=== PATIENT | male | born 1980 | race African-American/Black ===

== ENCOUNTER 2019-04-11 13:00 | Inpatient (IN) ==
[2019-04-11] MEDS ORDERED: KETOROLAC 30 MG/ML VIAL IV STA (13:35)
[2019-04-11] MEDS ORDERED: ACETAMINOPHEN 500 MG TAB PO STA (13:35)
[2019-04-11] MEDS ORDERED: SODIUM CHLORIDE 0.9% 1000ML 1,000 ML IV ONE ×2 (13:36→16:14)
--- NOTE | 2019-04-11 13:59 | XRay Report ---
XR chest 1V portable HISTORY: 39 years-old Male Chest Pain acute atypical chest pain COMPARISON: None available TECHNIQUE: Portable AP view of the chest FINDINGS: Cardiac mediastinal and hilar silhouettes are within normal limits. The right lung is clear. No overt pulmonary edema or pneumothorax. Left midlung and left lung base consolidation is noted along with a left-sided pleural effusion which is likely small. Radiodensities project about the inferior left sh oulder region. IMPRESSION: Left midlung the left lung base consolidation suggests pneumonia. Associated parapneumoni c effusion.. Follow-up is needed to document resolution after treatment course. The above report was generated using voice recognition software. It may contain grammatical, syntax o r spelling errors. Electronically signed by: Cal Ferrara M.D. 04/11/2019 1:56 PM
[2019-04-11 14:03] LABS: INR 1.4 (0.9-1.1); Partial Thromboplastin Ratio 1.2; Partial Thromboplastin Time 33.4 Seconds (21.0-31.0); Prothrombin Time 13.6 Seconds (9.0-12.0)
[2019-04-11] MEDS ORDERED: LEVOFLOXACIN/D5W 750 MG/150 ML BAG IV STA (14:03)
[2019-04-11 14:06] LABS: D Dimer 1280 ug/L FEU (0-500)
[2019-04-11] MEDS ORDERED: ALBUT/IPRATROP 3MG/0.5MG NEB 3 ML VIAL NEB STA (14:06)
[2019-04-11 14:09] LABS: Hematocrit (blood only) 46.1 % (42-52); Hemoglobin 16.4 g/dL (14.0-18.0); Mean Corpuscular Hgb Conc 35.6 g/dL (32-36); Mean Corpuscular Volume 91.7 fL (80-100); Mean Platelet Volume 10.8 fL (7.4-10.4); Platelet Count 157 K/uL (130-400); RDW Coefficient of Variation 14.1 % (11.5-14.5); RDW Standard Deviation 47.4 fL (36.4-46.3); Red Blood Count 5.03 M/uL (4.7-6.1); White Blood Count 20.29 K/uL (4.8-10.8)
[2019-04-11 14:14] LABS: Alanine Aminotransferase 21 U/L (12-78); Albumin Level 3.1 gm/dl (3.4-5.0); Aspartate Aminotransferase 11 U/L (15-37); BUN Creatinine Ratio 14.1 (10-20); Blood Urea Nitrogen 20 mg/dl (7-18); Calcium 8.7 mg/dl (8.5-10.1); Carbon Dioxide 29 mmol/L (21-32); Chloride 98 mmol/L (98-107); Est GFR (Non-African American) 62.9; Glucose 112 mg/dl (70-99); Potassium 4.5 mmol/L (3.5-5.1); Sodium 136 mmol/L (136-145)
[2019-04-11 14:19] LABS: Albumin Globulin Ratio 0.7 (0.9-2); Alkaline Phosphatase 66 U/L (45-117); Bilirubin,Total 2.3 mg/dl (0.2-1); Globulin 4.5 gm/dl (2.5-4.0); Total Protein 7.6 gm/dl (6.4-8.2); Troponin I < 0.015 ng/ml (0-0.045)
[2019-04-11] MEDS ORDERED: OPTIRAY 320 125ml IV PRN (14:32)
--- NOTE | 2019-04-11 14:35 | CT Scan Report ---
CT head/brain wo con CLINICAL HISTORY: 39 years-old Male with headache. Acute headache TECHNIQUE: Multiple axial CT images of the head were obtained without contrast. A dose lowering tech nique was utilized adhering to the principles of ALARA. COMPARISON: Chest radiograph of same day. FINDINGS: No acute intracranial hemorrhage, midline shift, intracranial mass, hydrocephalus, territorial ischem ia or abnormal extra-axial collection. The calvarium is intact. Mild mucosal thickening about the ethmoid sinuses. Mastoid air cells are cl ear. Soft tissues and orbits are unremarkable. Left midlung and left lung base opacities noted on the best worker localizer images. IMPRESSION: No acute intracranial abnormality. The above report was generated using voice recognition software. It may contain grammatical, syntax o r spelling errors. Electronically signed by: Cal Ferrara M.D. 04/11/2019 2:33 PM
[2019-04-11 14:37] LABS: Basophils # (auto) 0.03 K/uL (0-0.2); Basophils % (auto) 0.1 %; Immature Granulocytes # (auto) 0.76 K/uL (0.00-0.02); Immature Granulocytes % (auto) 3.7 %; Lymphocytes # (auto) 0.64 K/uL (1.2-3.4); Lymphocytes % (auto) 3.2 %; Monocytes # (auto) 0.25 K/uL (0.11-0.59); Monocytes % (auto) 1.2 %; Neutrophils # (auto) 18.61 K/uL (1.4-6.5); Neutrophils % (auto) 91.8 %; Toxic Vacuolation 2+
[2019-04-11] MEDS ORDERED: MoRPHine SULFATE 4 MG/ML 1 ML CARP\\VIAL IV STA (14:46)
--- NOTE | 2019-04-11 14:47 | CT Scan Report ---
CHEST CTA for PULMONARY ARTERIES CT DOSE: 1225.90 mGy.cm HISTORY: PE, prisoner, +dimer, denies cough/infectious symp TECHNIQUE: Multiaxial CT images of the chest were performed following the intravenous administration of contrast to evaluate the pulmonary arteries. Maximal intensity projection images were also obtaine d. A dose lowering technique was utilized adhering to the principles of ALARA. COMPARISON STUDY: Chest 04/11/2019. FINDINGS: Normal caliber thoracic aorta with no evidence for dissection. No pleural or pericardial ef fusions. No mediastinal or right hilar lymphadenopathy. There are a few mildly enlarged left hilar ly mph nodes. The heart is normal in size. The main pulmonary arteries are patent. The remaining pulmona ry arteries are essentially nondiagnostic due to the poor opacification and respiratory motion artifa ct. Questionable filling defects seen within the left lower lobe pulmonary arteries best seen on imag e 153 and within the right middle and lower lobe pulmonary arteries appear to be due to the poor opac ification. Pulmonary emboli are considered less likely but not entirely excluded. The visualized live r, spleen, and adrenal glands are unremarkable. Normal esophagus. No suspicious lytic or blastic osse ous lesions. No pneumothorax. A few small subtle groundglass density seen within the right lower lobe . There is dense consolidation involving the majority of the left lower lobe. A few air bronchograms are identified. However, the majority of the left lower lobe bronchi demonstrate mucoid opacification . IMPRESSION: 1. No evidence for pulmonary venous within the main pulmonary arteries. The remaining pulmonary arter ies are essentially nondiagnostic due to the poor opacification respiratory motion artifact. Question al filling defects as described are likely due to the poor opacification. Pulmonary emboli are consid ered less likely but not entirely excluded. Lower extremity venous Doppler is recommended to evaluate for possible DVT. 2. There is dense consolidation involving the majority of the left lower lobe. A few air bronchograms are identified. However, the majority of the left lower lobe bronchi demonstrate mucoid opacificatio n. This favors a pneumonia. An underlying mass is considered less likely but not entirely excluded. B ronchoscopy is recommended for further evaluation. 3. A few mildly enlarged left hilar lymph nodes. Electronically signed by: Cruzito Tavares M.D. 04/11/2019 2:46 PM
[2019-04-11] MEDS ORDERED: POLYETHYLENE (MIRALAX) 17 GM PACK PO PRN (15:39)
--- NOTE | 2019-04-11 15:47 | History & Physical Report ---
Date of Service April 11, 2019 Assessment & Plan (1) Sepsis: (2) Pneumonia involving left lung: This is a 39-year-old male from [facility] with no known past medical history who presents with lightheadedness and pleuritic chest pain since yesterday and was found to have sepsis 2/2 pneumonia. -Tachycardic at 119, tachypneic in high 30s with leukocytosis of 20.2 9K -Lactic acid of 2.9 and procalcitonin of 32 -Blood cultures ordered after patient given first dose of Levaquin in ED -Broad spectrum coverage with Zosyn and Levaquin. MRSA nasal swab also pending -CXR with left midlung the left lung base consolidation suggestive of pneumonia with associated parapneumonic effusion -CTA chest without evidence for pulmonary venous within the main pulmonary arteries but the remaining pulmonary arteries are essentially nondiagnostic due to the poor opacification respiratory motion artifact -Ordered bilateral lower extremity doppler to evaluate for DVT -Xopenex nebs Q6HR, IV fluid resuscitations, supplemental O2 PRN (3) Parapneumonic effusion: CXR with pneumonia with associated parapneumonic effusion -Will need follow up CXR in one month to evaluate whether or not associated parapneumonic effusion has resolved. If not, may require bronchoscopy at that time (4) History of tobacco use: Quit smoking 2 months ago DVT Ppx: Calin veliz, early ambulation Code status: FULL PCP: KACI De Jesus Dispo:Admitted to [facility]. Discharge planning ordered. Patient seen in collaboration with Dr. Rivera. Please see addendum. History of Present Illness Chief Complaint: lightheadedness, pleuritic chest pain Primary Care Provider: KACI De Jesus This is a 39-year-old male from [facility] with no known past medical history who presents with lightheadedness and pleuritic chest pain since yesterday. Patient states that he got dull frontal headache yesterday and noticed decreased appetite. Today, patient felt lightheaded and was evaluated in [facility] before being sent to ED for further evaluation. Endorses subjective fever and chills since yesterday as well as dry cough and pleuritic chest pain. Denies any wheezing, productive sputum or hemoptysis. Does not take any home medications. Denies sick contacts. Stop smoking 2 months ago. In ED, patient found to be tachycardic at 119, tachypneic in high 30s. Has a leukocytosis of 20.2 9K, lactate of 2.[address] of [address]. CT head without acute intracranial abnormality. CXR with left midlung the left lung base consolidation suggestive of pneumonia with associated parapneumonic effusion. Follow-up is needed to document resolution after treatment course. Chest CTA without evidence for pulmonary venous within the main pulmonary arteries. The remaining pulmonary arteries are essentially nondiagnostic due to the poor opacification respiratory motion artifact. Questionable filling defects as described are likely due to the poor opacification. Pulmonary emboli are considered less likely but not entirely excluded. An underlying mass is considered less likely but not entirely excluded. Bronchoscopy is recommended for further evaluation. Started on dose of Levaquin in ED but due to patient meeting sepsis criteria, will expand to Zosyn and Levaquin. Blood cultures pending. Allergies Allergy/AdvReac Type Severity Reaction Status Date / Time No Known Allergies Allergy Unverified 04/11/19 14:02 Home Medications Home Medications Medication Instructions Recorded Confirmed Type No Known Home Medications 04/11/19 04/11/19 History Past Med/Surg History Medical History History of tobacco use (Chronic) Surgical History H/O shoulder surgery (Chronic) Family History Father Myocardial infarction Social History Feels Safe at Home: Yes Smoking Status: Former smoker Review of Systems Review of Systems: At least ten systems reviewed and negative except as noted in the HPI. Physical Exam Physical Exam: General Appearance: WD/WN, appears acutely ill, O2 saturation at 95% on 2L NC Head: normocephalic, atraumatic Eyes: normal inspection, PERRL, EOMI ENT: hearing grossly normal, pharynx normal (moist mucous membranes) Neck: supple, no JVD, no adenopathy Respiratory/Chest: Poor air movement bilaterally, crackles left lung base. No wheezes or rhonci. No respiratory distress or accessory muscle use Cardiovascular: tachycardic, no murmur, normal peripheral pulses, no BLE edema Abdomen/GI: normal bowel sounds, soft, non-tender to palpation Extremities/Musculoskelatal: normal inspection, no calf tenderness, normal capillary refill, no pedal edema Neurologic/Psych: alert, normal mood/affect, oriented x 3 Skin: normal color, warm/dry Results & Data Vital Signs (Past 12 Hours) Vital Signs Temp Pulse Pulse Resp BP Pulse Ox 04/11/19 15:10 133 H 27 H 131/82 95 04/11/19 15:00 126 H 36 H 96 04/11/19 14:50 122 H 28 H 04/11/19 14:42 117 H 20 93 04/11/19 14:40 119 H 37 H 94 04/11/19 14:32 120 H 31 H 94 04/11/19 14:10 117 H 37 H 92 04/11/19 14:00 120 H 41 H 92 04/11/19 13:59 92 04/11/19 13:50 120 H 41 H 04/11/19 13:49 119 H 40 H 04/11/19 13:35 92 04/11/19 13:08 37.3 C 119 H 18 144/86 H 92 Laboratory Results Short CBC 04/11/19 Range/Units 13:45 WBC 20.29 H (4.8-10.8) K/uL Hgb 16.4 (14.0-18.0) g/dL Hct 46.1 (42-52) % Plt Count 157 (130-400) K/uL BMP 04/11/19 13:45 Sodium 136 Potassium 4.5 Chloride 98 Carbon Dioxide 29 BUN 20 H Creatinine 1.39 Glucose 112 H Calcium 8.7 Cardiac Enzymes 04/11/19 Range/Units 13:45 Troponin I < 0.015 (0-0.045) ng/ml Liver Function 04/11/19 Range/Units 13:45 Total Bilirubin 2.3 H (0.2-1) mg/dl AST 11 L (15-37) U/L ALT 21 (12-78) U/L Alkaline Phosphatase 66 (45-117) U/L Albumin 3.1 L (3.4-5.0) gm/dl Diagnostic Findings CT head: IMPRESSION: No acute intracranial abnormality. CXR: IMPRESSION: Left midlung the left lung base consolidation suggests pne umonia. Associated parapneumonic effusion.. Follow-up is needed to document resolution after treatment course. Chest CTA: IMPRESSION: 1. No evidence for pulmonary venous within the main pulmonary arteries. The remaining pulmonary arteries are essentially nondiagnostic due to the poor opacification respiratory motion artifact. Questionable filling defects as described are likely due to the poor opacification. Pulmonary emboli are considered less likely but not entirely excluded. Lower extremity venous Doppler is recommended to evaluate for possible DVT. 2. There is dense consolidation involving the majority of the left lower lobe. A few air bronchograms are identified. However, the majority of the left lower lobe bronchi demonstrate mucoid opacification. This favors a pneumonia. An underlying mass is considered less likely but not entirely excluded. Bronchoscopy is recommended for further evaluation. 3. A few mildly enlarged left hilar lymph nodes. Supervising Physician Co-Signing Physician Notes I saw this patient with the physician librarian assistant, I participated in the history, physical, review of systems, and physical exam. I reviewed the medications with the patient and the physician librarian assistant and helped reconcile the medications. I helped take a detailed family and social history as well. I formulated the assessment and plan personally with the physician librarian assistant and went over it with the patient. ROS-No Headache, No Visual Changes, No Nausea, No Vomiting,+ Fever, + Chills, No Neck Pain or Stiffness, +Pleuritic Chest Pain, No Palpitations, + SOB, + LAWTON, + Cough, No Sputum, + Wheezing, No Abdominal Pain, No Diarrhea, No Hematemesis, No Hemoptysis, No Unexpected Weight Loss, No Flank pain, No Melena, No Hematochezia, No Frequency, No Urgency, No Burning, No Hematuria, No Rashes, No Diaphoresis. Appetite is Normal Physical Exam Gen-AAO x 3, NAD, febrile, Toxic appearing Head-NCAT, EOMI, PERRLA, Anicteric Sclera, No Posterior Pharyngeal Erythema Neck-Supple, No JVD, No Thyromegaly, No Masses, No LAD, No Bruits Lungs-Clear to Auscultation Bilaterally, L Basilar Rales, No Rhonchi, No Wheezing, No Crepitus Chest-No S4, +S1, +S2, No S3, No Murmurs, No Rubs, No Gallops, No Ectopy Abdomen-Soft, Bowel Sounds Present, Non Tender, Non Distended, No Hepatomegaly, No Splenomegaly, No Palpable Masses, No Rebound, No Rigidity, No Guarding Musculoskeletal-Full Range of Motion Bilaterally, No CVAT Extremities-No Cyanosis, No Clubbing, No Edema Nuero-Cranial Nerves II-XII grossly intact, Motor WNL, DTRs WNL, Strength WNL, Non Focal Psych-Normal Mood (1) Sepsis Sepsis type: sepsis due to unspecified organism Qualified Code(s): A41.9 - Sepsis, unspecified organism
--- NOTE | 2019-04-11 16:34 | Emergency Department Note ---
Entered by Willow Pearson acting as a scribe for Yonatan Hodge MD History of Present Illness General Chief complaint: Chest Pain Stated complaint: CHEST PAIN Time Seen by Provider: 04/11/19 13:11 Source: patient History of Present Illness Provider complaint: chest pain Onset (ago): day(s) 1 Location: chest and left Radiation: non-radiation Pain Consistency: + intermittent Maximum Pain Intensity: 9 Quality: + sharp Associated symptoms: + headaches, + loss of appetite and + other (-swelling in legs); no cough The patient is a 39 year old Black male w/ PMHx who presents to the ED w/ CC of chest pain beginning yesterday. The patient states that he has been experiencing intermittent episodes of sharp chest pain that started yesterday. He states that is last episode was this morning at 700 and it has been constant pain since. The patient states that the pain is left sided and is non-radiating. He states that he has a lack of appetite and a headache which he took Ibuprofen that did not alleviate his pain. He denies any swelling in his legs or cough. The patient states that he does not take any blood thinner. He reports that he quit smoking 2 months ago. He states that his father had a heart attack at the age of 67. Home Medications Home Medications Medication Instructions Recorded Confirmed Type No Known Home Medications 04/11/19 04/11/19 History Allergies Allergy/AdvReac Type Severity Reaction Status Date / Time No Known Allergies Allergy Unverified 04/11/19 14:02 Past Med/Surg History Medical History History of tobacco use (Chronic) Surgical History H/O shoulder surgery (Chronic) Family History Father Myocardial infarction Social History Feels Safe at Home: Yes Smoking Status: Former smoker Review of Systems See HPI for pertinent positives & negatives. and A total of 10 systems reviewed and were otherwise negative Physical Exam Vital Signs Vital Signs - 24 hr 04/11/19 13:08 04/11/19 13:35 04/11/19 13:49 Temperature 37.3 C Temperature Source Oral Sepsis Recent Fever Within 48 Hours No Sepsis New/Unexplained Change in Mental Status No Sepsis Action Taken by Nursing No Action Required Oxygen Flow Rate - Titration 2 Pulse Oximetry Post Tiitration 94 Pulse Rate 119 H 119 H Pulse Rate [Apical] Pulse Rate from SpO2 Sensor Respiratory Rate 18 40 H Blood Pressure 144/86 H Blood Pressure Mean 105 Pulse Oximetry 92 92 Oxygen Delivery Method Room Air Room Air Nasal Cannula Oxygen Flow Rate 0 04/11/19 13:50 04/11/19 13:59 04/11/19 14:00 Temperature Temperature Source Sepsis Recent Fever Within 48 Hours Sepsis New/Unexplained Change in Mental Status Sepsis Action Taken by Nursing Oxygen Flow Rate - Titration Pulse Oximetry Post Tiitration Pulse Rate 120 H 120 H Pulse Rate [Apical] Pulse Rate from SpO2 Sensor 120 H Respiratory Rate 41 H 41 H Blood Pressure Blood Pressure Mean Pulse Oximetry 92 92 Oxygen Delivery Method Room Air Oxygen Flow Rate 04/11/19 14:10 04/11/19 14:32 04/11/19 14:40 Temperature Temperature Source Sepsis Recent Fever Within 48 Hours Sepsis New/Unexplained Change in Mental Status Sepsis Action Taken by Nursing Oxygen Flow Rate - Titration Pulse Oximetry Post Tiitration Pulse Rate 117 H 120 H 119 H Pulse Rate [Apical] Pulse Rate from SpO2 Sensor 117 H 120 H 119 H Respiratory Rate 37 H 31 H 37 H Blood Pressure Blood Pressure Mean Pulse Oximetry 92 94 94 Oxygen Delivery Method Oxygen Flow Rate 04/11/19 14:42 04/11/19 14:50 04/11/19 15:00 Temperature Temperature Source Sepsis Recent Fever Within 48 Hours Sepsis New/Unexplained Change in Mental Status Sepsis Action Taken by Nursing Oxygen Flow Rate - Titration Pulse Oximetry Post Tiitration Pulse Rate 122 H 126 H Pulse Rate [Apical] 117 H Pulse Rate from SpO2 Sensor 127 H Respiratory Rate 20 28 H 36 H Blood Pressure Blood Pressure Mean Pulse Oximetry 93 96 Oxygen Delivery Method Nasal Cannula Oxygen Flow Rate 2 04/11/19 15:10 04/11/19 15:11 04/11/19 15:20 Temperature Temperature Source Sepsis Recent Fever Within 48 Hours Sepsis New/Unexplained Change in Mental Status Sepsis Action Taken by Nursing Oxygen Flow Rate - Titration Pulse Oximetry Post Tiitration Pulse Rate 133 H 130 H 126 H Pulse Rate [Apical] Pulse Rate from SpO2 Sensor 133 H 128 H 126 H Respiratory Rate 27 H 37 H 36 H Blood Pressure 131/82 131/82 Blood Pressure Mean 98 98 Pulse Oximetry 95 96 95 Oxygen Delivery Method Oxygen Flow Rate 04/11/19 15:30 04/11/19 15:40 04/11/19 15:50 Temperature Temperature Source Sepsis Recent Fever Within 48 Hours Sepsis New/Unexplained Change in Mental Status Sepsis Action Taken by Nursing Oxygen Flow Rate - Titration Pulse Oximetry Post Tiitration Pulse Rate 129 H 126 H 122 H Pulse Rate [Apical] Pulse Rate from SpO2 Sensor Respiratory Rate 29 H 31 H 32 H Blood Pressure Blood Pressure Mean Pulse Oximetry Oxygen Delivery Method Oxygen Flow Rate 04/11/19 16:00 04/11/19 16:01 04/11/19 16:10 Temperature Temperature Source Sepsis Recent Fever Within 48 Hours Sepsis New/Unexplained Change in Mental Status Sepsis Action Taken by Nursing Oxygen Flow Rate - Titration Pulse Oximetry Post Tiitration Pulse Rate 117 H 120 H 121 H Pulse Rate [Apical] Pulse Rate from SpO2 Sensor 118 H 120 H 122 H Respiratory Rate 27 H 29 H 24 Blood Pressure 125/81 Blood Pressure Mean 95 Pulse Oximetry 97 95 95 Oxygen Delivery Method Oxygen Flow Rate GENERAL: Well appearing, well nourished, NAD, non-toxic. EYE EXAM: Normal conjunctiva. PERRL, no anisocoria and EOM's grossly intact w/o pain. OROPHARYNX: Moist mucous membranes. Grossly normal dentition. NECK: Supple, no nuchal rigidity, no adenopathy, non-tender. No signs of meningismus. LUNGS: Crackles at left base. Normal chest wall mechanics. HEART: NSR, tachycardic, no MRG. No reproducible chest wall pain, crepitus, or bruising. ABDOMEN: Abdomen soft, non-tender, normo-active bowel sounds, no masses, no rebound or guarding. BACK: No CVA TTP. SKIN: No rashes and no bruising. UPPER EXTREMITIES: Upper extremities are grossly normal. Left upper extremity cuffed. LOWER EXTREMITIES: No pitting edema. No calf pain. Right lower extremity cuffed. NEURO EXAM: A&O x3, cranial nerves II-XII grossly intact, normal speech, 5/5 strength throughout, no sensory deficits, good finger to nose, no pronator drift, moves all 4 extremities on command w/o issue. Course 1327: The patient was evaluated in room C4, and a complete history and physical examination were performed. 1409: I reevaluated the patient and updated him on his results. 1456: I discussed the patient's case with Shilpa Love, Dr. Mamie Love Hospitalist will further evaluate the patient. Consultations Consultation #1: Shilpa Love Time: 14:56 Administered Medications Ioversol (Optiray 320 125ml) 85 ml IV ONCE PRN PRN Reason: Interaction Checking Stop: 04/15/19 14:31 Last Admin: 04/11/19 14:32 Dose: 85 ml Documented by: [id number] Discontinued Medications Acetaminophen (Tylenol) 1,000 mg PO NOW STA Stop: 04/11/19 13:36 Last Admin: 04/11/19 13:58 Dose: 1,000 mg Documented by: [id number] Albuterol (Duoneb) 6 ml NEB NOW STA Stop: 04/11/19 14:07 Last Admin: 04/11/19 14:39 Dose: 6 ml Documented by: [id number] Sodium Chloride (Nss 1000ml) 1,000 mls @ 999 mls/hr IV .Q1H1M ONE Stop: 04/11/19 14:36 Last Infusion: 04/11/19 14:51 Dose: 0 mls/hr Documented by: [id number] Admin: 04/11/19 13:49 Dose: 999 mls/hr Documented by: [id number] Levofloxacin/Dextrose (Levaquin/D5w) 750 mg in 150 mls @ 100 mls/hr IV NOW STA Stop: 04/11/19 15:32 Last Infusion: 04/11/19 16:19 Dose: 0 mls/hr Documented by: [id number] Admin: 04/11/19 14:31 Dose: 100 mls/hr Documented by: [id number] Ketorolac Tromethamine (Toradol) 30 mg IV NOW STA Stop: 04/11/19 13:36 Last Admin: 04/11/19 13:58 Dose: 30 mg Documented by: [id number] Morphine Sulfate (Morphine Sulfate) 4 mg IV NOW STA Stop: 04/11/19 14:47 Last Admin: 04/11/19 14:52 Dose: 4 mg Documented by: [id number] Medical Decision Making Medical Records Attestation: I reviewed the patient's medical records. Home Medications Current Medication List: was personally reviewed by me Laboratory Data Attestation: I reviewed the patient's lab results. Result diagrams: 04/11/19 13:45 04/11/19 13:45 Lab Results 04/11/19 04/11/19 04/11/19 Range/Units 13:45 13:45 13:45 WBC 20.29 H (4.8-10.8) K/uL RBC 5.03 (4.7-6.1) M/uL Hgb 16.4 (14.0-18.0) g/dL Hct 46.1 (42-52) % MCV 91.7 (80-100) fL MCH 32.6 (25-34) pg MCHC 35.6 (32-36) g/dL RDW Std Deviation 47.4 H (36.4-46.3) fL RDW Coeff of Alexander 14.1 (11.5-14.5) % Plt Count 157 (130-400) K/uL MPV 10.8 H (7.4-10.4) fL Immature Gran % (Auto) 3.7 % Neut % (Auto) 91.8 % Lymph % (Auto) 3.2 % Madison % (Auto) 1.2 % Eos % (Auto) 0.0 % Baso % (Auto) 0.1 % Immature Gran # (Auto) 0.76 H (0.00-0.02) K/uL Neut # (Auto) 18.61 H (1.4-6.5) K/uL Lymph # (Auto) 0.64 L (1.2-3.4) K/uL Madison # (Auto) 0.25 (0.11-0.59) K/uL Eos # (Auto) 0.00 (0-0.5) K/uL Baso # (Auto) 0.03 (0-0.2) K/uL Toxic Vacuolation 2+ PT 13.6 H (9.0-12.0) Seconds INR 1.4 H (0.9-1.1) APTT 33.4 H (21.0-31.0) Seconds PTT Ratio 1.2 D-Dimer 1280 H* (0-500) ug/L FEU Sodium 136 (136-145) mmol/L Potassium 4.5 (3.5-5.1) mmol/L Chloride 98 (98-107) mmol/L Carbon Dioxide 29 (21-32) mmol/L Anion Gap 9.0 (3-11) BUN 20 H (7-18) mg/dl Creatinine 1.39 (0.6-1.4) mg/dl Est Cr Clr Drug Dosing 76.0 ml/min Est GFR ( Amer) 73.0 Est GFR (Non-Af Amer) 62.9 BUN/Creatinine Ratio 14.1 (10-20) Glucose 112 H (70-99) mg/dl Lactate (0.4-2.0) mmol/L Calcium 8.7 (8.5-10.1) mg/dl Total Bilirubin 2.3 H (0.2-1) mg/dl AST 11 L (15-37) U/L ALT 21 (12-78) U/L Alkaline Phosphatase 66 (45-117) U/L Troponin I < 0.015 (0-0.045) ng/ml Total Protein 7.6 (6.4-8.2) gm/dl Albumin 3.1 L (3.4-5.0) gm/dl Globulin 4.5 H (2.5-4.0) gm/dl Albumin/Globulin Ratio 0.7 L (0.9-2) Lipase 24 L (73-393) U/L Procalcitonin (0-0.5) ng/ml 04/11/19 04/11/19 Range/Units 13:45 15:38 WBC (4.8-10.8) K/uL RBC (4.7-6.1) M/uL Hgb (14.0-18.0) g/dL Hct (42-52) % MCV (80-100) fL MCH (25-34) pg MCHC (32-36) g/dL RDW Std Deviation (36.4-46.3) fL RDW Coeff of Alexander (11.5-14.5) % Plt Count (130-400) K/uL MPV (7.4-10.4) fL Immature Gran % (Auto) % Neut % (Auto) % Lymph % (Auto) % Madison % (Auto) % Eos % (Auto) % Baso % (Auto) % Immature Gran # (Auto) (0.00-0.02) K/uL Neut # (Auto) (1.4-6.5) K/uL Lymph # (Auto) (1.2-3.4) K/uL Madison # (Auto) (0.11-0.59) K/uL Eos # (Auto) (0-0.5) K/uL Baso # (Auto) (0-0.2) K/uL Toxic Vacuolation PT (9.0-12.0) Seconds INR (0.9-1.1) APTT (21.0-31.0) Seconds PTT Ratio D-Dimer (0-500) ug/L FEU Sodium (136-145) mmol/L Potassium (3.5-5.1) mmol/L Chloride (98-107) mmol/L Carbon Dioxide (21-32) mmol/L Anion Gap (3-11) BUN (7-18) mg/dl Creatinine (0.6-1.4) mg/dl Est Cr Clr Drug Dosing ml/min Est GFR ( Amer) Est GFR (Non-Af Amer) BUN/Creatinine Ratio (10-20) Glucose (70-99) mg/dl Lactate 2.9 H* (0.4-2.0) mmol/L Calcium (8.5-10.1) mg/dl Total Bilirubin (0.2-1) mg/dl AST (15-37) U/L ALT (12-78) U/L Alkaline Phosphatase (45-117) U/L Troponin I (0-0.045) ng/ml Total Protein (6.4-8.2) gm/dl Albumin (3.4-5.0) gm/dl Globulin (2.5-4.0) gm/dl Albumin/Globulin Ratio (0.9-2) Lipase (73-393) U/L Procalcitonin 32.07 H (0-0.5) ng/ml Imaging Data Radiologist's Impression: Radiology results as stated below per my review and the radiologist's interpretation: XR chest 1V portable HISTORY: 39 years-old Male Chest Pain acute atypical chest pain COMPARISON: None available TECHNIQUE: Portable AP view of the chest FINDINGS: Cardiac mediastinal and hilar silhouettes are within normal limits. The right lung is clear. No overt pulmonary edema or pneumothorax. Left midlung and left lung base consolidation is noted along with a left-sided pleural effusion which is likely small. Radiodensities project about the inferior left shoulder region. IMPRESSION: Left midlung the left lung base consolidation suggests pneumonia. Associated parapneumonic effusion.. Follow-up is needed to document resolution after treatment course. The above report was generated using voice recognition software. It may contain grammatical, syntax or spelling errors. Electronically signed by: Cal Ferrara M.D. 04/11/2019 1:[address] head/brain wo con CLINICAL HISTORY: 39 years-old Male with headache. Acute headache TECHNIQUE: Multiple axial CT images of the head were obtained without contrast. A dose lowering technique was utilized adhering to the principles of ALARA. COMPARISON: Chest radiograph of same day. FINDINGS: No acute intracranial hemorrhage, midline shift, intracranial mass, hydrocephalus, territorial ischemia or abnormal extra-axial collection. The calvarium is intact. Mild mucosal thickening about the ethmoid sinuses. Mastoid air cells are clear. Soft tissues and orbits are unremarkable. Left midlung and left lung base opacities noted on the manager nuclear localizer images. IMPRESSION: No acute intracranial abnormality. The above report was generated using voice recognition software. It may contain grammatical, syntax or spelling errors. Electronically signed by: Cal Ferrara M.D. 04/11/2019 2:33 PM CHEST CTA for PULMONARY ARTERIES CT DOSE: 1225.90 mGy.cm HISTORY: PE, prisoner, +dimer, denies cough/infectious symp TECHNIQUE: Multiaxial CT images of the chest were performed following the intravenous administration of contrast to evaluate the pulmonary arteries. Maximal intensity projection images were also obtained. A dose lowering technique was utilized adhering to the principles of ALARA. COMPARISON STUDY: Chest 04/11/2019. FINDINGS: Normal caliber thoracic aorta with no evidence for dissection. No pleural or pericardial effusions. No mediastinal or right hilar lymphadenopathy. There are a few mildly enlarged left hilar lymph nodes. The heart is normal in size. The main pulmonary arteries are patent. The remaining pulmonary arteries are essentially nondiagnostic due to the poor opacification and respiratory motion artifact. Questionable filling defects seen within the left lower lobe pulmonary arteries best seen on image 153 and within the right middle and lower lobe pulmonary arteries appear to be due to the poor opacification. Pulmonary emboli are considered less likely but not entirely excluded. The visualized liver, spleen, and adrenal glands are unremarkable. Normal esophagus. No suspicious lytic or blastic osseous lesions. No pneumothorax. A few small subtle groundglass density seen within the right lower lobe. There is dense consolidation involving the majority of the left lower lobe. A few air bronchograms are identified. However, the majority of the left lower lobe bronchi demonstrate mucoid opacification. IMPRESSION: 1. No evidence for pulmonary venous within the main pulmonary arteries. The remaining pulmonary arteries are essentially nondiagnostic due to the poor opacification respiratory motion artifact. Questional filling defects as described are likely due to the poor opacification. Pulmonary emboli are considered less likely but not entirely excluded. Lower extremity venous Doppler is recommended to evaluate for possible DVT. 2. There is dense consolidation involving the majority of the left lower lobe. A few air bronchograms are identified. However, the majority of the left lower l obe bronchi demonstrate mucoid opacification. This favors a pneumonia. An underlying mass is considered less likely but not entirely excluded. Bronchoscopy is recommended for further evaluation. 3. A few mildly enlarged left hilar lymph nodes. Electronically signed by: Cruzito Tavares M.D. 04/11/2019 2:46 PM ECG Data Attestation: I personally reviewed and interpreted this ECG as follows: Indication: chest pain Rate (beats per minute): 118 Rhythm: sinus tachycardia Findings: + other (normal interval and axis) and + T-wave inversion (lead 3 and aVF) Blood Pressure Blood Pressure Findings: Elevated blood pressure Blood Pressure Disposition: further management by hospitalist DARRON Hylton The patient is a 39 year old Black male w/ PMHx who presents to the ED w/ CC of chest pain beginning yesterday. Differential diagnosis: Etiologies such as cardiac ischemia, aortic dissection, pulmonary embolism, pneumonia, pneumothorax, musculoskeletal, infections, pericarditis, myocarditis, esophageal rupture, gastrointestinal, as well as others were entertained. Patient was seen and evaluated the bedside. The patient was presenting with some left-sided chest pain. No reproducible chest wall tenderness and the patient has been incarcerated for approximately 15 years. The patient did have blood work completed along with EKG troponin chest x-ray. The patient's chest x-ray did show concern for left lower lobe pneumonia and possible parapneumonic effusion. The patient did have an elevated d-dimer he describes sharp chest pain so CTA was obtained. They did wall mass to be less likely but the patient likely does have a pneumonia. No obvious blood clot but is slightly limited. Given the after mentioned I did speak with the on-call hospitalist who agreed to further evaluate treat the patient. The patient upon reassessment was feeling improved and was only on 2 L via nasal cannula. Patient did receive a first dose of antibiotics and was admitted to the medicine service. Impression & Plan Pneumonia, Chest pain, Parapneumonic effusion, Sepsis Critical Care Time Critical Care Time: Yes Total Critical Care Time: 37 I have personally spent greater than 37 minutes of critical care time in direct management of this patient. This includes bedside care, interpretation of diagnostic studies, and testing, discussion with consultants, patient, and family members, and other require inpatient management activities. This 37 minutes is in excess of all separately billable procedures. Discharge Plan Visit Data Chief Complaint: Chest Pain Stated Complaint: CHEST PAIN ED Provider: Yonatan Hodge Discharge Problem: Pneumonia, Chest pain, Parapneumonic effusion, Sepsis Patient Disposition: Being Evaluated by Hospitalist Forms Stand Alone Forms: Call Back Authorization, [facility] Prescriptions Prescriptions: No Action No Known Home Medications RF: 0 Referrals Referrals: Liza CLEMONS [Primary Care Provider] - Discharge Problem: Pneumonia Qualifiers: Pneumonia type: due to unspecified organism Chest pain Qualifiers: Chest pain type: unspecified Qualified Code(s): R07.9 - Chest pain, unspecified Sepsis Qualifiers: Sepsis type: sepsis due to unspecified organism Qualified Code(s): A41.9 - Sepsis, unspecified organism The scribe's documentation has been prepared under my direction and personally reviewed by me in its entirety. I confirm that the note above accurately reflects all work, treatment, procedures, and medical decision making performed by me.
[2019-04-11] MEDS ORDERED: CONSULT PHARMACY STA (19:26)
[2019-04-11] MEDS ORDERED: KETOROLAC TROMETHAMINE 15 MG/ML VIAL IV PRN (19:26)
[2019-04-11] MEDS ORDERED: LEVOFLOXACIN CONSULT ACTIVE PRN (19:39)
[2019-04-11] MEDS ORDERED: PIPERACILL/TAZOBAC CONSULT ACTIVE PRN (19:40)
[2019-04-11] MEDS ORDERED: PIPERACILLIN/TAZOBACTAM 3.375 GM in DEXTROSE 5% 100 ML IV ONE (20:00)
[2019-04-11] MEDS: LEVALBUTEROL HCL 0.63 MG/3 ML NEB NEB SCH (20:08)
--- NOTE | 2019-04-11 20:35 | Ultrasound Report ---
US venous doppler LE BI HISTORY: Pain. Edema. evaluate for DVT COMPARISON STUDY: None. FINDINGS: There is normal compressibility, flow, and augmentation within the bilateral lower extremit y deep venous systems. IMPRESSION: No DVT within the right or left lower extremity. The above report was generated using voice recognition software. It may contain grammatical, syntax or spelling errors. Electronically signed by: Shaka Ordonez M.D. 04/11/2019 8:33 PM
[2019-04-11] MEDS ORDERED: LEVOFLOXACIN/D5W 750 MG/150 ML BAG IV SCH (21:00)
[2019-04-12] MEDS: LEVALBUTEROL HCL 0.63 MG/3 ML NEB NEB SCH ×4 (02:00→19:36)
[2019-04-12] MEDS: PIPERACILLIN/TAZOBACTAM 3.375 GM in DEXTROSE 5% 100 ML IV SCH ×3 (02:07→18:10)
[2019-04-12 08:19] LABS: Hemoglobin 14.7 g/dL (14.0-18.0); Mean Corpuscular Hgb Conc 35.9 g/dL (32-36); Mean Corpuscular Volume 89.7 fL (80-100); Mean Platelet Volume 10.7 fL (7.4-10.4); Platelet Count 132 K/uL (130-400); RDW Coefficient of Variation 14.1 % (11.5-14.5); RDW Standard Deviation 46.3 fL (36.4-46.3); Red Blood Count 4.57 M/uL (4.7-6.1); White Blood Count 19.06 K/uL (4.8-10.8)
[2019-04-12 09:09] LABS: BUN Creatinine Ratio 13.8 (10-20); Calcium 8.7 mg/dl (8.5-10.1); Creatinine Clr Calc Pharmacy 101.4 ml/min; Est GFR (African American) 103.6; Est GFR (Non-African American) 89.4; Potassium 3.7 mmol/L (3.5-5.1)
[2019-04-12] MEDS: ACETAMINOPHEN 325 MG TAB PO PRN ×2 (09:17→19:53)
--- NOTE | 2019-04-12 17:41 | Hospitalist Progress Note ---
Date of Service April 12, 2019 Assessment & Plan (1) Sepsis: Admitted with severe sepsis, meets criteria: Was tachycardic marked leukocytosis, tachypnea, elevated lactic acid and procalcitonin level Source of infection left lower lobe pneumonia Patient is treated with empiric antibiotic IV Levaquin and Zosyn, blood cultures positive for pneumococcal pneumonia, Levaquin discontinued Continue Zosyn (2) Pneumonia involving left lung: Possible pneumococcal pneumonia Presented with sepsis fever chills tachycardia tachypnea elevated lactic acid -Tachycardic at 119, tachypneic in high 30s with leukocytosis of 20.2 9K -Lactic acid of 2.9 and procalcitonin of 32 2 sets of blood culture growing pneumococcus Levaquin discontinued, patient is continued with Zosyn, ID evaluation requested -CXR with left midlung the left lung base consolidation suggestive of pneumonia with associated parapneumonic effusion -CTA chest without evidence for pulmonary venous within the main pulmonary arteries but the remaining pulmonary arteries are essentially nondiagnostic due to the poor opacification respiratory motion artifact -Lower extremity Doppler negative for DVT (3) Parapneumonic effusion: CXR with pneumonia with associated parapneumonic effusion -Will need follow up CXR in one month to evaluate whether or not associated parapneumonic effusion has resolved. If not, may require bronchoscopy at that time (4) History of tobacco use: Quit smoking 2 months ago DVT Ppx: Calin veliz, early ambulation Code status: FULL PCP: KACI De Jesus Dispo: Continue to monitor in telemetry (5) Gram-positive bacteremia: 2 sets of blood culture positive for pneumococcal pneumonia, repeat blood cultures ordered, continue on Zosyn (6) Pneumococcal pneumonia: Subjective Continues to have shortness of breath significant pleuritic chest pain on left side, has nonproductive cough Afebrile, vitals remained stable Physical Exam 2 Physical Exam: GENERAL: No sign of distress, HEENT: Sclera nonicteric, pink-purple bilateral equal reactive to light extraocular muscle intact Normal oral mucosa, neck: No JVD, no thyromegaly, trachea midline Lungs: Diminished, Rales at base Cardiovascular: Regular S1 and S2, no murmur or gallop, no JVD, no lower extremity edema Abdomen: Soft, nontender, bowel sounds active, no hepatosplenomegaly Extremities: No rash or deformity, normal joint, Neuro: No focal neurological deficit, no dysarthria, no facial droop Psych: Alert awake oriented x3: Euthymic Skin: No rash LYMPH NODES: No cervical lymphadenopathy Results & Data Vital Signs (Past 12 Hours) Vital Signs Temp Pulse Resp BP Pulse Ox 04/12/19 14:55 36.6 C 100 H 20 115/67 95 04/12/19 14:04 103 H 16 93 04/12/19 11:07 37.0 C 89 18 121/76 96 04/12/19 07:19 36.8 C 106 H 18 101/70 96 04/12/19 07:00 102 H 20 95 (1) Sepsis Sepsis type: sepsis due to unspecified organism Qualified Code(s): A41.9 - Sepsis, unspecified organism
[2019-04-13] MEDS: PIPERACILLIN/TAZOBACTAM 3.375 GM in DEXTROSE 5% 100 ML IV SCH ×2 (02:37→09:03)
[2019-04-13] MEDS: LEVALBUTEROL HCL 0.63 MG/3 ML NEB NEB SCH ×2 (02:50→07:05)
[2019-04-13 06:38] LABS: Hematocrit (blood only) 40.1 % (42-52); Hemoglobin 15.1 g/dL (14.0-18.0); Mean Corpuscular Hgb Conc 37.7 g/dL (32-36); Mean Corpuscular Volume 90.1 fL (80-100); Mean Platelet Volume 10.2 fL (7.4-10.4); Platelet Count 164 K/uL (130-400); RDW Standard Deviation 46.8 fL (36.4-46.3); Red Blood Count 4.45 M/uL (4.7-6.1); White Blood Count 20.67 K/uL (4.8-10.8)
[2019-04-13 06:56] LABS: BUN Creatinine Ratio 12.1 (10-20); Creatinine Clr Calc Pharmacy 100.5 ml/min; Est GFR (African American) 104.8; Est GFR (Non-African American) 90.4; Potassium 3.6 mmol/L (3.5-5.1)
[2019-04-13] MEDS: ACETAMINOPHEN 325 MG TAB PO PRN (09:07)
[2019-04-13] MEDS ORDERED: ALBUTEROL 0.083% NEBU SOLN 3 ML VIAL NEB PRN (09:31)
[2019-04-13] MEDS: ALBUTEROL HFA 8 GM INHALER INH SCH ×3 (13:06→21:24)
--- NOTE | 2019-04-13 15:43 | Infectious Disease Consult ---
Date of Consultation April 13, 2019 Assessment & Plan (1) Pneumococcal sepsis: 39-year-old male with pneumococcal sepsis with pneumonia, responding to antibiotics. Patient changed to IV ceftriaxone, likely can transition to oral antibiotics in the near future if continues to do well. Will obtain follow-up blood cultures to ensure clearance of bacteremia. Will follow. (2) Pneumococcal pneumonia: History of Present Illness Reason for Consultation: Strep pneumoniae bacteremia Attending Physician: Dana Bravo MD History of Present Illness 39-year-old male, prisoner at [facility], without significant past medical history, was brought to the emergency department yesterday with 1 day history of fever, chills, headache, dry cough, and pleuritic chest. Was found to have evidence of sepsis, and CT revealed presence of left lower lobe pneumonia. Patient was started empirically on Zosyn and levofloxacin, and blood cultures have now returned positive for Streptococcus pneumoniae. Has improved clinically, temperature is down and has been hemodynamically stable. Has effusion on CT scanning, follow-up imaging pending. Still with some left-sided chest pain, currently 1-2 out of 10 in intensity. Allergies Allergy/AdvReac Type Severity Reaction Status Date / Time No Known Allergies Allergy Unverified 04/11/19 14:02 Home Medications Home Medications Medication Instructions Recorded Confirmed Type No Known Home Medications 04/11/19 04/11/19 History amoxicillin-pot clavulanate 1 tab PO BIDM 7 Days #14 tab 04/14/19 Rx Patient History Family History Father Myocardial infarction Social History Preferred Language: Belarusian Communication Ability: Effective Rig Builder Required: No Beliefs That Will Affect Care: None Current Living Situation: Other Current Living Situation Comment: Inmate Feels Safe at Home: Yes Smoking Status: Former smoker Do You Dip or Chew Tobacco: No Hx Alcohol Use: No Hx Substance Use: No Physical Exam Constitutional: WD/WN, vitals as above comfortable; no acute distress Eyes: PERRL, conjunctivae normal, anicteric sclerae ENMT: external ear and nose normal, oropharynx normal Neck: trachea midline, no thyromegaly neck nontender Respiratory: normal respiratory effort, lungs clear to auscultation normal percussion; no respiratory distress and does not use accessory muscles Auscultation: + rhonchi (Few left-sided) Cardiovascular: Rate/Rhythm: regular rate and regular rhythm Heart Sounds: normal S1 and normal S2; no gallop, no murmur and no cardiac rub Vessels: normal peripheral pulses; no JVD Gastrointestinal (Abdomen): normal bowel sounds, soft, nontender, no hepatosplenomegaly Musculoskeletal: no cyanosis or clubbing, extremities motor strength 5/5 Spine: thoracic spine normal to inspection and lumbar spine normal to inspection; no cervical spinal tenderness Skin: no rashes, warm and dry normal turgor; no lesions Neurologic: patellar DTR's 2+ bilat, sensation intact no focal motor deficits Psychiatric: A+Ox3, euthymic affect Orientation: cooperative Lymphatic: no cervical or axillary lymphadenopathy no inguinal lymphadenopathy Results & Data Vital Signs (Past 12 Hours) Vital Signs Temp Pulse Pulse Resp BP Pulse Ox 04/13/19 15:08 93 H 04/13/19 14:41 36.7 C 100 H 18 119/82 94 04/13/19 11:07 37.0 C 80 20 115/77 94 04/13/19 07:22 36.9 C 94 H 20 130/88 93 04/13/19 07:17 97 H 04/13/19 07:05 85 18 93 04/13/19 04:01 37 C 89 18 116/65 94 Laboratory Results Short CBC 04/13/19 Range/Units 06:28 WBC 20.67 H (4.8-10.8) K/uL Hgb 15.1 (14.0-18.0) g/dL Hct 40.1 L (42-52) % Plt Count 164 (130-400) K/uL BMP 04/13/19 06:28 Sodium 137 Potassium 3.6 Chloride 104 Carbon Dioxide 28 BUN 12 Creatinine 1.03 Glucose 95 Calcium 9.0 Diagnostic Findings Microbiology 04/11/19 15:38 Blood Aerobic Blood Culture - Final Streptococcus pneumoniae 04/11/19 15:38 Blood Anaerobic Blood Culture - Final Streptococcus pneumoniae 04/11/19 15:39 Blood Aerobic Blood Culture - Preliminary Streptococcus pneumoniae 04/11/19 15:39 Blood Anaerobic Blood Culture - Preliminary No growth in Anaerobic bottle after 24 hours. CHEST CTA for PULMONARY ARTERIES CT DOSE: 1225.90 mGy.cm HISTORY: PE, prisoner, +dimer, denies cough/infectious symp TECHNIQUE: Multiaxial CT images of the chest were performed following the intr avenous administration of contrast to evaluate the pulmonary arteries. Maximal intensity projection images were also obtained. A dose lowering technique was utilized adhering to the principles of ALARA. COMPARISON STUDY: Chest 04/11/2019. FINDINGS: Normal caliber thoracic aorta with no evidence for dissection. No pleural or pericardial effusions. No mediastinal or right hilar lymphadenopathy. There are a few mildly enlarged left hilar lymph nodes. The heart is normal in size. The main pulmonary arteries are patent. The remaining pulmonary arteries are essentially nondiagnostic due to the poor opacification and respiratory motion artifact. Questionable filling defects seen within the left lower lobe pulmonary arteries best seen on image 153 and within the right middle and lower lobe pulmonary arteries appear to be due to the poor opacification. Pulmonary emboli are considered less likely but not entirely excluded. The visualized liver, spleen, and adrenal glands are unremarkable. Normal esophagus. No suspicious lytic or blastic osseous lesions. No pneumothorax. A few small subtle groundglass density seen within the right lower lobe. There is dense consolidation involving the majority of the left lower lobe. A few air bronchograms are identified. However, the majority of the left lower lobe bronchi demonstrate mucoid opacification. IMPRESSION: 1. No evidence for pulmonary venous within the main pulmonary arteries. The remaining pulmonary arteries are essentially nondiagnostic due to the poor opacification respiratory motion artifact. Questional filling defects as descri bed are likely due to the poor opacification. Pulmonary emboli are considered less likely but not entirely excluded. Lower extremity venous Doppler is recommended to evaluate for possible DVT. 2. There is dense consolidation involving the majority of the left lower lobe. A few air bronchograms are identified. However, the majority of the left lower lobe bronchi demonstrate mucoid opacification. This favors a pneumonia. An underlying mass is considered less likely but not entirely excluded. Bronchoscopy is recommended for further evaluation. 3. A few mildly enlarged left hilar lymph nodes. Electronically signed by: Cruzito Tavares M.D. 04/11/2019 2:46 PM Dictated: 04/11/19 1430
[2019-04-13] MEDS: cefTRIAXone SODIUM 2,000 MG in DEXTROSE 5% 50 ML IV SCH (16:46)
--- NOTE | 2019-04-13 18:06 | Hospitalist Progress Note ---
Date of Service April 13, 2019 Assessment & Plan (1) Sepsis: Admitted with severe sepsis, meets criteria: Was tachycardic marked leukocytosis, tachypnea, elevated lactic acid and procalcitonin level Source of infection left lower lobe pneumonia Patient is treated with empiric antibiotic IV Levaquin and Zosyn, blood cultures positive for pneumococcal pneumonia, appreciate ID eval Abx changed to Rocephin repeat blood cultures ordered (2) Pneumonia involving left lung: Possible pneumococcal pneumonia Presented with sepsis fever chills tachycardia tachypnea elevated lactic acid -Tachycardic at 119, tachypneic in high 30s with leukocytosis of 20.2 9K -Lactic acid of 2.9 and procalcitonin of 32 2 sets of blood culture growing pneumococcus repeat blood cultures ordered ABx changed to Rocephin -CXR with left midlung the left lung base consolidation suggestive of pneumonia with associated parapneumonic effusion -CTA chest without evidence for pulmonary venous within the main pulmonary arteries but the remaining pulmonary arteries are essentially nondiagnostic due to the poor opacification respiratory motion artifact -Lower extremity Doppler negative for DVT (3) Parapneumonic effusion: CXR with pneumonia with associated parapneumonic effusion -Will need follow up CXR in one month to evaluate whether or not associated parapneumonic effusion has resolved. If not, may require bronchoscopy at that time (4) History of tobacco use: Quit smoking 2 months ago DVT Ppx: Calin veliz, early ambulation Code status: FULL PCP: KAC[facility] De Jesus Dispo: Continue to monitor in telemetry (5) Gram-positive bacteremia: 2 sets of blood culture positive for pneumococcal pneumonia, repeat blood cultures ordered, continue on Zosyn (6) Pneumococcal pneumonia: Subjective cough has improved no complain of SOB or LAWTON remains afebrile pluritic chest pain has improved as well Results & Data Vital Signs (Past 12 Hours) Vital Signs Temp Pulse Pulse Resp BP Pulse Ox 04/13/19 15:08 93 H 04/13/19 14:41 36.7 C 100 H 18 119/82 94 04/13/19 11:07 37.0 C 80 20 115/77 94 04/13/19 07:22 36.9 C 94 H 20 130/88 93 04/13/19 07:17 97 H 04/13/19 07:05 85 18 93 (1) Sepsis Sepsis type: sepsis due to unspecified organism Qualified Code(s): A41.9 - Sepsis, unspecified organism
[2019-04-14] MEDS: ALBUTEROL HFA 8 GM INHALER INH SCH ×2 (08:15→13:45)
[2019-04-14] MEDS: cefTRIAXone SODIUM 2,000 MG in DEXTROSE 5% 50 ML IV SCH (08:16)
[2019-04-14 14:05] LABS: Hematocrit (blood only) 41.2 % (42-52); Hemoglobin 14.7 g/dL (14.0-18.0); Mean Corpuscular Hgb Conc 35.7 g/dL (32-36); Mean Corpuscular Volume 88.8 fL (80-100); Mean Platelet Volume 10.2 fL (7.4-10.4); Platelet Count 200 K/uL (130-400); RDW Coefficient of Variation 14.5 % (11.5-14.5); RDW Standard Deviation 47.1 fL (36.4-46.3); Red Blood Count 4.64 M/uL (4.7-6.1); White Blood Count 11.51 K/uL (4.8-10.8)
[2019-04-14 14:40] LABS: Basophils % (auto) 0.9 %; Eosinophils # (auto) 0.37 K/uL (0-0.5); Eosinophils % (auto) 3.2 %; Immature Granulocytes # (auto) 0.72 K/uL (0.00-0.02); Immature Granulocytes % (auto) 6.3 %; Lymphocytes # (auto) 1.96 K/uL (1.2-3.4); Monocytes # (auto) 1.34 K/uL (0.11-0.59); Monocytes % (auto) 11.6 %; Neutrophils # (auto) 7.02 K/uL (1.4-6.5)
--- NOTE | 2019-04-14 16:30 | Hospitalist Progress Note ---
Date of Service April 14, 2019 Assessment & Plan (1) Sepsis: Admitted with severe sepsis, meets criteria: Was tachycardic marked leukocytosis, tachypnea, elevated lactic acid and procalcitonin level Source of infection left lower lobe pneumonia -CXR with left midlung the left lung base consolidation suggestive of pneumonia with associated parapneumonic effusion -CTA chest without evidence for pulmonary venous within the main pulmonary arteries but the remaining pulmonary arteries are essentially nondiagnostic due to the poor opacification respiratory motion artifact -Lower extremity Doppler negative for DVT Patient is treated with empiric antibiotic IV Levaquin and Zosyn, Patient clinically improved, afebrile, with resolution of leukocytosis blood cultures positive for pneumococcal pneumonia, appreciate ID eval Abx changed to Rocephin blood culture shows no growth IV Rocephin discontinued, change antibiotic to p.o. Augmentin, will need total 7 days of treatment (2) Pneumonia involving left lung: Possible pneumococcal pneumonia Presented with sepsis fever chills tachycardia tachypnea elevated lactic acid CT chest as above -Tachycardic at 119, tachypneic in high 30s with leukocytosis of 20.2 9K -Lactic acid of 2.9 and procalcitonin of 32 2 sets of blood culture growing pneumococcus repeat blood cultures negative Agents vitals remained stable, WBC improved to 11 K today with normal lactic acid level Antibiotic changed to p.o. Augmentin today, needs total 10 days of treatment (3) Parapneumonic effusion: CXR with pneumonia with associated parapneumonic effusion -Will need follow up CXR in one month to evaluate whether or not associated parapneumonic effusion has resolved. If not, may require bronchoscopy at that time (4) History of tobacco use: Quit smoking 2 months ago DVT Ppx: Calin veliz, early ambulation Code status: FULL PCP: [facility] Dispo: Plan to discharge to [facility] present tomorrow (5) Gram-positive bacteremia: 2 sets of blood culture positive for pneumococcal pneumonia, Repeat blood cultures no growth, IV antibiotic discontinued started on p.o. Augmentin (6) Pneumococcal pneumonia: Subjective Denies any cough, no shortness of breath or hypoxia Has been afebrile Minimal pleuritic chest pain on left chest wall area with deep breath Physical Exam 2 Constitutional: WD/WN, vitals as above Eyes: PERRL, conjunctivae normal, anicteric sclerae ENMT: external ear and nose normal, oropharynx normal Neck: trachea midline, no thyromegaly Respiratory: normal respiratory effort; no respiratory distress, no labored breathing and no cough Auscultation: lungs clear to auscultation bilaterally; no crackles, no rales, no rhonchi and no wheezes Cardiovascular: RRR, no murmur, no edema Gastrointestinal (Abdomen): normal bowel sounds, soft, nontender, no hepatosplenomegaly Musculoskeletal: no cyanosis or clubbing, extremities motor strength 5/5 Skin: no rashes, warm and dry Neurologic: PERRL, EOMI, accommodation nl, no face palsy, no dysarthria Psychiatric: A+Ox3, euthymic affect Results & Data Vital Signs (Past 12 Hours) Vital Signs Temp Pulse Pulse Resp BP Pulse Ox 04/14/19 14:48 92 H 04/14/19 11:27 37.1 C 89 18 127/82 94 04/14/19 08:30 79 04/14/19 07:16 37.3 C 98 H 16 118/69 95 04/14/19 04:41 37.4 C 88 18 123/78 93 (1) Sepsis Sepsis type: sepsis due to unspecified organism Qualified Code(s): A41.9 - Sepsis, unspecified organism
[2019-04-14] MEDS: AMOXICILLIN/CLAVULANATE 875 MG TAB PO SCH (17:12)
[2019-04-14] MEDS: ACETAMINOPHEN 325 MG TAB PO PRN ×2 (17:14→21:22)
[2019-04-15] MEDS: ACETAMINOPHEN 325 MG TAB PO PRN ×2 (03:21→08:01)
[2019-04-15] MEDS: AMOXICILLIN/CLAVULANATE 875 MG TAB PO SCH ×2 (07:58→17:29)
[2019-04-15] MEDS ORDERED: KETOROLAC TROMETHAMINE 15 MG/ML VIAL IV PRN (11:49)
--- NOTE | 2019-04-15 17:12 | Hospitalist Progress Note ---
Date of Service April 15, 2019 Assessment & Plan (1) Sepsis: Admitted with severe sepsis, meets criteria: Was tachycardic marked leukocytosis, tachypnea, elevated lactic acid and procalcitonin level Source of infection left lower lobe pneumonia -CXR with left midlung the left lung base consolidation suggestive of pneumonia with associated parapneumonic effusion -CTA chest without evidence for pulmonary venous within the main pulmonary arteries but the remaining pulmonary arteries are essentially nondiagnostic due to the poor opacification respiratory motion artifact -Lower extremity Doppler negative for DVT Patient is treated with empiric antibiotic IV Levaquin and Zosyn, Patient clinically improved, afebrile, with resolution of leukocytosis blood cultures positive for pneumococcal pneumonia, appreciate ID eval Abx changed to Rocephin blood culture shows no growth Antibiotic changed to p.o. Augmentin: Will need a total 10 days of treatment (2) Pneumonia involving left lung: Possible pneumococcal pneumonia Presented with sepsis fever chills tachycardia tachypnea elevated lactic acid CT chest as above -Tachycardic at 119, tachypneic in high 30s with leukocytosis of 20.2 9K -Lactic acid of 2.9 and procalcitonin of 32 2 sets of blood culture growing pneumococcus repeat blood cultures negative Agents vitals remained stable, WBC improved to 11 K today with normal lactic acid level On p.o. Augmentin, needs total 10 days of treatment (3) Parapneumonic effusion: CXR with pneumonia with associated parapneumonic effusion -Will need follow up CXR in one month to evaluate whether or not associated parapneumonic effusion has resolved. If not, may require bronchoscopy at that time (4) History of tobacco use: Quit smoking 2 months ago DVT Ppx: Calin veliz, early ambulation Code status: FULL PCP: [facility] Dispo: Plan to discharge to [facility] possible tomorrow (5) Gram-positive bacteremia: 2 sets of blood culture positive for pneumococcal pneumonia, Repeat blood cultures no growth, IV antibiotic discontinued started on p.o. Augmentin (6) Pneumococcal pneumonia: Subjective Intermittent left sided pleuritic chest pain with deep breath Has been afebrile, no cough No shortness of breath or hypoxia Physical Exam Constitutional: WD/WN, vitals as above Eyes: PERRL, conjunctivae normal, anicteric sclerae ENMT: external ear and nose normal, oropharynx normal Neck: trachea midline, no thyromegaly Respiratory: normal respiratory effort; no respiratory distress, no labored breathing and no cough Auscultation: lungs clear to auscultation bilaterally; no crackles, no rales, no rhonchi and no wheezes Cardiovascular: RRR, no murmur, no edema Gastrointestinal (Abdomen): normal bowel sounds, soft, nontender, no hepatosplenomegaly Musculoskeletal: no cyanosis or clubbing, extremities motor strength 5/5 Skin: no rashes, warm and dry Neurologic: PERRL, EOMI, accommodation nl, no face palsy, no dysarthria Psychiatric: A+Ox3, euthymic affect Results & Data Vital Signs (Past 12 Hours) Vital Signs Temp Pulse Resp BP Pulse Ox 04/15/19 15:47 36.7 C 75 17 127/83 97 04/15/19 14:59 80 94 04/15/19 06:48 36.8 C 85 18 119/76 95 (1) Sepsis Sepsis type: sepsis due to unspecified organism Qualified Code(s): A41.9 - Sepsis, unspecified organism
[2019-04-15] MEDS ORDERED: CYCLOBENZAPRINE HCL 10 MG TAB PO PRN (18:18)
[2019-04-15] MEDS ORDERED: KETOROLAC TROMETHAMINE 10 MG TABLET PO PRN (18:18)
[2019-04-16] MEDS: ACETAMINOPHEN 325 MG TAB PO PRN (07:44)
[2019-04-16] MEDS: AMOXICILLIN/CLAVULANATE 875 MG TAB PO SCH (07:44)
--- NOTE | 2019-04-16 11:41 | Hospitalist Progress Note ---
Date of Service April 16, 2019 Assessment & Plan (1) Sepsis: Admitted with severe sepsis, meets criteria: Was tachycardic marked leukocytosis, tachypnea, elevated lactic acid and procalcitonin level Source of infection left lower lobe pneumonia -CXR with left midlung the left lung base consolidation suggestive of pneumonia with associated parapneumonic effusion -CTA chest without evidence for pulmonary venous within the main pulmonary arteries but the remaining pulmonary arteries are essentially nondiagnostic due to the poor opacification respiratory motion artifact -Lower extremity Doppler negative for DVT Patient is treated with empiric antibiotic IV Levaquin and Zosyn, Patient clinically improved, afebrile, with resolution of leukocytosis blood cultures positive for pneumococcal pneumonia, appreciate ID eval Started on IV Rocephin blood culture shows no growth Antibiotic changed to p.o. Augmentin: Will need a total 10 days of treatment Patient is discharged today with 7 more days of p.o. Augmentin (2) Pneumonia involving left lung: Possible pneumococcal pneumonia Presented with sepsis fever chills tachycardia tachypnea elevated lactic acid CT chest as above -Tachycardic at 119, tachypneic in high 30s with leukocytosis of 20.2 9K -Lactic acid of 2.9 and procalcitonin of 32 2 sets of blood culture growing pneumococcus repeat blood cultures negative Agents vitals remained stable, leukocytosis has resolved On p.o. Augmentin, needs total 10 days of treatment (3) Parapneumonic effusion: CXR with pneumonia with associated parapneumonic effusion -Will need follow up CXR in one month to evaluate whether or not associated parapneumonic effusion has resolved. If not, may require bronchoscopy at that time (4) History of tobacco use: Quit smoking 2 months ago DVT Ppx: Calin reneee, early ambulation Code status: FULL PCP: [facility] Dispo: Stable to be discharge to [facility] today Update given to [facility] physician Dr. Hayes (5) Gram-positive bacteremia: 2 sets of blood culture positive for pneumococcal pneumonia, Repeat blood cultures no growth, IV antibiotic discontinued started on p.o. Augmentin (6) Pneumococcal pneumonia: Subjective No complaint of cough, left chest pain has resolved, no fever or chills, stable to be discharged to [facility] today Physical Exam Constitutional: WD/WN, vitals as above Eyes: PERRL, conjunctivae normal, anicteric sclerae ENMT: external ear and nose normal, oropharynx normal Neck: trachea midline, no thyromegaly Respiratory: normal respiratory effort; no respiratory distress, no labored breathing and no cough Auscultation: lungs clear to auscultation bilaterally; no crackles, no rales, no rhonchi and no wheezes Cardiovascular: RRR, no murmur, no edema Gastrointestinal (Abdomen): normal bowel sounds, soft, nontender, no hepatosplenomegaly Musculoskeletal: no cyanosis or clubbing, extremities motor strength 5/5 Skin: no rashes, warm and dry Neurologic: PERRL, EOMI, accommodation nl, no face palsy, no dysarthria Psychiatric: A+Ox3, euthymic affect Results & Data Vital Signs (Past 12 Hours) Vital Signs Temp Pulse Pulse Resp BP Pulse Ox 04/16/19 09:46 36.8 C 100 H 82 18 129/75 93 04/16/19 06:44 36.8 C 82 18 129/75 93 04/15/19 23:51 36.6 C 88 18 134/89 95 (1) Sepsis Sepsis type: sepsis due to unspecified organism Qualified Code(s): A41.9 - Sepsis, unspecified organism
--- NOTE | 2019-04-17 10:01 | Discharge Summary ---
Date of Service April 17, 2019 Admission HPI Per Admitting Provider This is a 39-year-old male from [facility] with no known past medical history who presents with lightheadedness and pleuritic chest pain since yesterday. Patient states that he got dull frontal headache yesterday and noticed decreased appetite. Today, patient felt lightheaded and was evaluated in [facility] before being sent to ED for further evaluation. Endorses subjective fever and chills since yesterday as well as dry cough and pleuritic chest pain. Denies any wheezing, productive sputum or hemoptysis. Does not take any home medications. Denies sick contacts. Stop smoking 2 months ago. In ED, patient found to be tachycardic at 119, tachypneic in high 30s. Has a leukocytosis of 20.2 9K, lactate of 2.[address] of [address] head without acute intracranial abnormality. CXR with left midlung the left lung base consolidation suggestive of pneumonia with associated parapneumonic effusion. Follow-up is needed to document resolution after treatment course. Chest CTA without evidence for pulmonary venous within the main pulmonary arteries. The remaining pulmonary arteries are essentially nondiagnostic due to the poor opacification respiratory motion artifact. Questionable filling defects as descr ibed are likely due to the poor opacification. Pulmonary emboli are considered less likely but not entirely excluded. An underlying mass is considered less likely but not entirely excluded. Bronchoscopy is recommended for further evaluation. Started on dose of Levaquin in ED but due to patient meeting sepsis criteria, will expand to Zosyn and Levaquin. Blood cultures pending. Principal Diagnosis Pneumococcal pneumonia, sepsis Discharge Exam Constitutional WD/WN, vitals as above Eyes PERRL, conjunctivae normal, anicteric sclerae ENMT external ear and nose normal, oropharynx normal Neck trachea midline, no thyromegaly Respiratory normal respiratory effort; no respiratory distress, no labored breathing and no cough Auscultation: lungs clear to auscultation bilaterally; no crackles, no rales, no rhonchi and no wheezes Cardiovascular RRR, no murmur, no edema Gastrointestinal (Abdomen) normal bowel sounds, soft, nontender, no hepatosplenomegaly Musculoskeletal no cyanosis or clubbing, extremities motor strength 5/5 Skin no rashes, warm and dry Neurologic PERRL, EOMI, accommodation nl, no face palsy, no dysarthria Psychiatric A+Ox3, euthymic affect Discharge Data Allergies Allergy/AdvReac Type Severity Reaction Status Date / Time No Known Allergies Allergy Unverified 04/11/19 14:02 Consultations 04/11/19 14:57 ED Decision to Admit Stat 04/11/19 15:41 Consult Case Management - Discharge Planning Routine 04/12/19 17:45 Consult Infectious Diseases Routine Ordered Studies 04/11/19 13:39 CT head/brain wo con Stat 04/11/19 14:08 CT angio chest PE protocol Stat 04/11/19 19:26 US venous doppler LE Routine Hospital Course (1) Sepsis: Admitted with severe sepsis, meets criteria: Was tachycardic marked leukocytosis, tachypnea, elevated lactic acid and procalcitonin level Source of infection left lower lobe pneumonia -CXR with left midlung the left lung base consolidation suggestive of pneumonia with associated parapneumonic effusion -CTA chest without evidence for pulmonary venous within the main pulmonary arteries but the remaining pulmonary arteries are essentially nondiagnostic due to the poor opacification respiratory motion artifact -Lower extremity Doppler negative for DVT Patient is treated with empiric antibiotic IV Levaquin and Zosyn, Patient clinically improved, afebrile, with resolution of leukocytosis blood cultures positive for pneumococcal pneumonia, appreciate ID eval Started on IV Rocephin blood culture shows no growth Antibiotic changed to p.o. Augmentin: Will need a total 10 days of treatment Patient is discharged today with 7 more days of p.o. Augmentin (2) Pneumonia involving left lung: Possible pneumococcal pneumonia Presented with sepsis fever chills tachycardia tachypnea elevated lactic acid CT chest as above -Tachycardic at 119, tachypneic in high 30s with leukocytosis of 20.2 9K -Lactic acid of 2.9 and procalcitonin of 32 2 sets of blood culture growing pneumococcus repeat blood cultures negative Agents vitals remained stable, leukocytosis has resolved On p.o. Augmentin, needs total 10 days of treatment (3) Parapneumonic effusion: CXR with pneumonia with associated parapneumonic effusion -Will need follow up CXR in one month to evaluate whether or not associated parapneumonic effusion has resolved. If not, may require bronchoscopy at that time (4) History of tobacco use: Quit smoking 2 months ago DVT Ppx: Calni hose, early ambulation Code status: FULL PCP: KACI De Jesus Dispo: Stable to be discharge to [facility] today Update given to [facility] physician Dr. Hayes (5) Gram-positive bacteremia: 2 sets of blood culture positive for pneumococcal pneumonia, Repeat blood cultures no growth, IV antibiotic discontinued started on p.o. Augmentin (6) Pneumococcal pneumonia: Total Time Total Time Spent Total Time Spent (In Minutes): Approximately 40 minutes Total Time Includes: Examination of the Patient, Discharge Planning, Medication Reconciliation and Communication With Other Providers Discharge Plan Discharge Items [facility] Reason For Visit: LML PNEUMONIA Discharge Diagnosis: PNEUMOCOCCAL PNEUMONIA/SEPSIS Discharge Goals: Decrease discomfort, Diagnostic testing and Therapeutic intervention Activity: Resume your previous activity Non-emergency contact: Primary Care Provider Call non-emergency contact if: you have any medication questions, your symptoms worsen and you have a fever [facility] - Diet: Regular Addtl Provider Instructions: Follow-up with physician at [facility] Follow up CXR in one month to evaluate whether or not associated parapneumonic effusion has resolved. May need bronchoscopy if persistent left lower lobe effusion/consolidation noted Prescriptions: New amoxicillin-pot clavulanate 875-125 mg Tablet 1 tab PO BIDM 7 Days Qty: 14 RF: 0 cyclobenzaprine 10 mg Tablet 10 mg PO TID PRN (Reason: muscle spasm) Qty: 60 RF: 0 ibuprofen [Motrin IB] 200 mg capsule 400 mg PO Q8H PRN (Reason: pain) Qty: 90 RF: 0 Stand-Alone Forms: Call Back Authorization, [facility] Discharge Orders: Discharge Order (Routine); Ordered 04/16/19 Ordered By: Dana Bravo Admission Data Admit Date/Time: 04/11/19 15:39 Attending Provider: Dana Bravo Admit Provider: oJhn Rivera Primary Care Provider: Liza CLEMONS Other Providers: John Rivera ; Favian Carr Service: Medical Other Interventions: Discharge Summary Assessment (RN) Last Done: 04/16/19 09:46 DC Date/Time DO NOT enter until pt leaves facility: 04/16/19 11:08
== END 2019-04-16 11:08 | DRG 871 ==
LOC: ED 13:00 → 2W 15:39 → 3N 04-14 18:07 → 3E 04-14 22:30